=== PATIENT | female | born 1955 | race Caucasian/White ===

== ENCOUNTER 2017-12-25 13:12 | Emergency (ER) | payer OTHER, MEDICARE ==
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
[2017-12-25] MEDS ORDERED: LET GEL TOPICAL 1 EA SYR TP ONE (13:37)
[2017-12-25 14:46] VITALS: BP 121/75
== END 2017-12-25 14:45 | disposition home or self-care (01) ==
DX: S40.212A Abrasion of left shoulder, initial encounter (principal); S80.812A Abrasion, left lower leg, initial encounter; V28.4XXA Motorcycle driver injured in noncollision transport accident in traffic accident, initial encounter; Y92.410 Unspecified street and highway as the place of occurrence of the external cause; Y99.8 Other external cause status; Y93.89 Activity, other specified